=== PATIENT | male | born 1995 | race Caucasian/White ===

== ENCOUNTER 2016-07-06 17:24 | Emergency (ER) | payer OTHER | END 2016-07-06 19:38 | disposition home or self-care (01) | LOC: FER 17:24 | DX: T15.01XA Foreign body in cornea, right eye, initial encounter (principal); F17.210 Nicotine dependence, cigarettes, uncomplicated | CPT/HCPCS: 99283 ==

== ENCOUNTER 2016-07-22 08:52 | Emergency (ER) | payer OTHER | END 2016-07-22 12:02 | disposition home or self-care (01) | LOC: FER 08:52 | DX: S06.0X9A Concussion with loss of consciousness of unspecified duration, initial encounter (principal); S80.01XA Contusion of right knee, initial encounter; S40.021A Contusion of right upper arm, initial encounter; V49.50XA Passenger injured in collision with unspecified motor vehicles in traffic accident, initial encounter; Y92.410 Unspecified street and highway as the place of occurrence of the external cause | CPT/HCPCS: 70160; 70450; 73060; 73564 ==